=== PATIENT | male | born 1940 | race Caucasian/White ===

== ENCOUNTER 2021-06-09 15:03 | Emergency (ER) | payer OTHER ==
[2021-06-09 15:20] VITALS: BMI 26.4
[2021-06-09] MEDS ORDERED: CASIRIVIMAB (REGN10933) 600 MG, IMDEVIMAB (REGN10987) 600 MG in SODIUM CHLORIDE 100 ML IVPB ONE (16:04)
[2021-06-09 16:45] LABS: BASO % 0.3 % (0-2.0); EOS % 0.5 % (0-4.5); HEMATOCRIT 32.6 % (35.4-49); HEMOGLOBIN 10.8 GM/dL (11.7-16.9); LYMPH % 15.4 % (8-40); MCH 27.8 pg (25.7-33.7); MCHC 33.1 g/dl (32.0-35.9); MEAN CELL VOLUME 84.1 fl (80-96); MEAN PLT VOLUME 8.9 fl (7.5-11.1); MONO % 14.9 % (3.8-10.2); NEUT % 68.9 % (42.8-82.8); PLATELET COUNT 211 10^3/uL (134-434); RBC 3.88 M/mm3 (4.00-5.60); RDW 15.9 % (11.9-15.9); WHITE BLOOD COUNT 4.8 K/mm3 (4.0-10.0)
[2021-06-09 17:14] LABS: ALBUMIN 3.2 g/dl (3.4-5.0); BILIRUBIN,TOTAL 0.3 mg/dL (0.2-1); BLOOD UREA NITROGEN 48.3 mg/dL (7-18); CALCIUM 7.6 mg/dL (8.5-10.1); TOT PROT 7.6 g/dl (6.4-8.2)
[2021-06-09] MEDS ORDERED: DEXTROSE 50%-WATER - 25 GM/50 ML VIAL IVPUSH ONE (17:56)
[2021-06-09] MEDS ORDERED: DEXTROSE 50%-WATER 25 GM/50 ML DISP.SYRIN ONE (18:09)
[2021-06-09 20:11] VITALS: BP 167/60; PULSE 87; TEMP 98.1
== END 2021-06-09 20:17 | disposition home or self-care (01) ==
LOC: JCOVINFU 15:03
PROC: 3E03329 Introduction of Other Anti-infective into Peripheral Vein, Percutaneous Approach (ICD-10-PCS; principal; 2021-06-09)
PROC: 3E033GC Introduction of Other Therapeutic Substance into Peripheral Vein, Percutaneous Approach (ICD-10-PCS; 2021-06-09)
DX: U07.1 COVID-19 (principal); R73.9 Hyperglycemia, unspecified
CPT/HCPCS: 36415; 71046-TC-FY; 80053; 85025; 93005; 93010; 99285-25; M0243; Q0243

== ENCOUNTER 2021-08-10 20:00 | Inpatient (IN) | payer OTHER ==
[2021-08-10 21:27] LABS: CALCIUM 7.9 mg/dL (8.5-10.1)
[2021-08-10 21:28] LABS: ALBUMIN 2.7 g/dl (3.4-5.0); BLOOD UREA NITROGEN 70.4 mg/dL (7-18)
[2021-08-10 21:29] LABS: INR 1.2 (0.83-1.09); PROTHROMBIN TIME (PATIENT) 14.8 SEC (9.7-13.0)
[2021-08-10 21:30] LABS: BASO % 0.1 % (0-2.0); EOS % 1.3 % (0-4.5); HEMATOCRIT 21.5 % (35.4-49); HEMOGLOBIN 7.3 GM/dL (11.7-16.9); LYMPH % 8.5 % (8-40); MCH 28.9 pg (25.7-33.7); MCHC 33.9 g/dl (32.0-35.9); MEAN CELL VOLUME 85.3 fl (80-96); MEAN PLT VOLUME 9.1 fl (7.5-11.1); MONO % 10.3 % (3.8-10.2); NEUT % 79.8 % (42.8-82.8); PLATELET COUNT 241 10^3/uL (134-434); RBC 2.52 M/mm3 (4.00-5.60); RDW 15.8 % (11.9-15.9); WHITE BLOOD COUNT 6.5 K/mm3 (4.0-10.0)
[2021-08-10 21:31] LABS: CREATININE 4.4 mg/dL (0.55-1.3)
[2021-08-10] MEDS ORDERED: hydrALAZINE HCL 50 MG TABLET (FP) PO ONE (21:31)
[2021-08-10] MEDS ORDERED: ROSUVASTATIN CA 20 MG TABLET (FP) PO ONE (21:31)
[2021-08-10] MEDS ORDERED: SODIUM BICARBONATE 325 MG TABLET PO ONE (21:31)
[2021-08-10 21:33] LABS: BILIRUBIN,TOTAL 0.4 mg/dL (0.2-1); TOT PROT 7.2 g/dl (6.4-8.2)
[2021-08-10] MEDS ORDERED: PANTOPRAZOLE SODIUM 40 MG VIAL IVPUSH ONE (21:50)
[2021-08-10] MEDS ORDERED: hydrALAZINE HCL 25 MG TABLET (FP) ONE (21:58)
[2021-08-10] MEDS ORDERED: PANTOPRAZOLE SODIUM 40 MG/100 ML BAG IVPB ONE (21:59)
[2021-08-10] MEDS ORDERED: DEXTROSE 5%-NORMAL SALINE 1,000 ML IV SCH (23:15)
[2021-08-11] MEDS ORDERED: DEXTROSE 5%-NORMAL SALINE 1,000 ML IV SCH ×2 (03:04→04:25)
[2021-08-11 04:35] VITALS: BMI 21.9
[2021-08-11] MEDS: hydrALAZINE HCL 50 MG TABLET (FP) PO SCH ×3 (06:23→22:22)
[2021-08-11] MEDS: INSULIN SLIDING SCALE (NOVOLOG) 1 VIAL SQ SCH ×4 (06:25→22:23)
[2021-08-11 09:14] LABS: BASO % 0.2 % (0-2.0); EOS % 1.3 % (0-4.5); HEMOGLOBIN 7.6 GM/dL (11.7-16.9); LYMPH % 9.5 % (8-40); MCHC 34.5 g/dl (32.0-35.9); MEAN CELL VOLUME 84.1 fl (80-96); MONO % 12.7 % (3.8-10.2); NEUT % 76.3 % (42.8-82.8); PLATELET COUNT 212 10^3/uL (134-434); RBC 2.62 M/mm3 (4.00-5.60); RDW 15.7 % (11.9-15.9); WHITE BLOOD COUNT 5.1 K/mm3 (4.0-10.0)
[2021-08-11 09:39] LABS: BLOOD UREA NITROGEN 67.8 mg/dL (7-18); CALCIUM 7.8 mg/dL (8.5-10.1)
[2021-08-11 09:42] LABS: CREATININE 4.1 mg/dL (0.55-1.3)
[2021-08-11] MEDS ORDERED: PT OWN MED DRAWER 7, Y5N ONE (09:53)
[2021-08-11] MEDS: NIFEdipine E.R. 30 MG TABLET PO SCH (09:58)
[2021-08-11] MEDS: AMIODARONE HCL 200 MG TABLET PO SCH (09:58)
[2021-08-11] MEDS: PANTOPRAZOLE 40 MG TABLET PO SCH (09:59)
[2021-08-11] MEDS: TAMSULOSIN HCL 0.4 MG CAP PO SCH (09:59)
[2021-08-11] MEDS: HEPARIN NA (PORCINE) 5,000 UNITS/ML 1ML VIAL SQ SCH ×2 (09:59→22:22)
[2021-08-11] MEDS: MINOXIDIL 2.5 MG TABLET PO SCH (13:04)
[2021-08-11] MEDS ORDERED: FUROSEMIDE 40 MG/4 ML INJECTABLE VIAL IVPUSH ONE (14:45)
[2021-08-11] MEDS: FERROUS SO4 325 MG TABLET (FP) PO SCH (17:27)
[2021-08-11] MEDS: ROSUVASTATIN CA 10 MG TABLET (FP) PO SCH (22:22)
[2021-08-11] MEDS ORDERED: ACETAMINOPHEN 500 MG TABLET (FP) PO ONE (23:10)
[2021-08-12] MEDS ORDERED: ACETAMINOPHEN 325 MG TABLET (FP) PO PRN (06:00)
[2021-08-12] MEDS: hydrALAZINE HCL 50 MG TABLET (FP) PO SCH ×3 (06:19→21:15)
[2021-08-12] MEDS: INSULIN SLIDING SCALE (NOVOLOG) 1 VIAL SQ SCH ×4 (06:20→21:16)
[2021-08-12] MEDS ORDERED: POLYETHYLENE GLYCOL 3350 255 GM BTL PO ONE (07:43)
[2021-08-12] MEDS ORDERED: BISACODYL 5 MG TABLET.DR (FP) PO ONE (07:43)
[2021-08-12 08:42] LABS: CALCIUM 7.8 mg/dL (8.5-10.1)
[2021-08-12 08:43] LABS: ALBUMIN 2.3 g/dl (3.4-5.0); BLOOD UREA NITROGEN 59.2 mg/dL (7-18)
[2021-08-12 08:45] LABS: BASO % 0.2 % (0-2.0); EOS % 1.5 % (0-4.5); HEMATOCRIT 26.5 % (35.4-49); HEMOGLOBIN 9.1 GM/dL (11.7-16.9); LYMPH % 9.3 % (8-40); MCH 28.8 pg (25.7-33.7); MCHC 34.2 g/dl (32.0-35.9); MEAN CELL VOLUME 84.1 fl (80-96); MEAN PLT VOLUME 8.9 fl (7.5-11.1); MONO % 12.8 % (3.8-10.2); NEUT % 76.2 % (42.8-82.8); PLATELET COUNT 251 10^3/uL (134-434); RBC 3.15 M/mm3 (4.00-5.60); WHITE BLOOD COUNT 6.8 K/mm3 (4.0-10.0)
[2021-08-12 08:47] LABS: BILIRUBIN,TOTAL 0.6 mg/dL (0.2-1); TOT PROT 6.3 g/dl (6.4-8.2)
[2021-08-12] MEDS: TAMSULOSIN HCL 0.4 MG CAP PO SCH (09:19)
[2021-08-12] MEDS: HEPARIN NA (PORCINE) 5,000 UNITS/ML 1ML VIAL SQ SCH ×2 (11:15→21:15)
[2021-08-12] MEDS: NIFEdipine E.R. 30 MG TABLET PO SCH (11:15)
[2021-08-12] MEDS: AMIODARONE HCL 200 MG TABLET PO SCH (11:15)
[2021-08-12] MEDS: PANTOPRAZOLE 40 MG TABLET PO SCH (11:16)
[2021-08-12] MEDS: FERROUS SO4 325 MG TABLET (FP) PO SCH ×2 (11:16→18:48)
[2021-08-12] MEDS ORDERED: PT OWN MED DRAWER 7, Y5N ONE ×2 (11:59→16:12)
[2021-08-12] MEDS: MINOXIDIL 2.5 MG TABLET PO SCH (12:06)
[2021-08-12] MEDS ORDERED: INSULIN (NOVOLOG) ASPART 100 UNITS/ML 10ML VIAL ONE (20:17)
[2021-08-12] MEDS: ROSUVASTATIN CA 10 MG TABLET (FP) PO SCH (21:15)
[2021-08-13] MEDS ORDERED: MINERAL OIL ENEMA 133 ML ENEMA RC ONE (04:00)
[2021-08-13] MEDS: hydrALAZINE HCL 50 MG TABLET (FP) PO SCH ×3 (06:08→22:20)
[2021-08-13] MEDS: INSULIN SLIDING SCALE (NOVOLOG) 1 VIAL SQ SCH ×4 (06:10→22:52)
[2021-08-13] MEDS ORDERED: EPINEPHrine 1:10,000 (P-F SYR) 1 MG/10 ML DISP.SYRIN IVPUSH ONE (09:05)
[2021-08-13] MEDS ORDERED: EPINEPHrine 1:10,000 (P-F SYR) 1 MG/10 ML DISP.SYRIN ONE (10:43)
[2021-08-13] MEDS: FERROUS SO4 325 MG TABLET (FP) PO SCH ×2 (11:10→18:08)
[2021-08-13] MEDS: AMIODARONE HCL 200 MG TABLET PO SCH (11:15)
[2021-08-13] MEDS: NIFEdipine E.R. 30 MG TABLET PO SCH (11:16)
[2021-08-13] MEDS: PANTOPRAZOLE 40 MG TABLET PO SCH (11:16)
[2021-08-13] MEDS: TAMSULOSIN HCL 0.4 MG CAP PO SCH (11:16)
[2021-08-13] MEDS: HEPARIN NA (PORCINE) 5,000 UNITS/ML 1ML VIAL SQ SCH ×2 (11:17→22:21)
[2021-08-13] MEDS: MINOXIDIL 2.5 MG TABLET PO SCH (11:17)
[2021-08-13] MEDS ORDERED: IRON SUCROSE INJECTION 100 MG in SODIUM CHLORIDE 95 ML IVPB ONE (11:36)
[2021-08-13] MEDS ORDERED: ACETAMINOPHEN 325 MG TABLET (FP) PO PRN (12:49)
[2021-08-13 16:17] LABS: BASO % 0.3 % (0-2.0); EOS % 0.9 % (0-4.5); HEMATOCRIT 25.8 % (35.4-49); HEMOGLOBIN 8.6 GM/dL (11.7-16.9); LYMPH % 7.3 % (8-40); MCH 28.1 pg (25.7-33.7); MCHC 33.4 g/dl (32.0-35.9); MEAN CELL VOLUME 84.3 fl (80-96); MEAN PLT VOLUME 8.8 fl (7.5-11.1); MONO % 13.9 % (3.8-10.2); NEUT % 77.6 % (42.8-82.8); PLATELET COUNT 235 10^3/uL (134-434); RBC 3.06 M/mm3 (4.00-5.60); RDW 15.2 % (11.9-15.9); WHITE BLOOD COUNT 6.7 K/mm3 (4.0-10.0)
[2021-08-13 16:34] LABS: CALCIUM 7.2 mg/dL (8.5-10.1)
[2021-08-13 16:35] LABS: ALBUMIN 2.1 g/dl (3.4-5.0); BLOOD UREA NITROGEN 48.6 mg/dL (7-18)
[2021-08-13 16:39] LABS: BILIRUBIN,TOTAL 0.4 mg/dL (0.2-1); TOT PROT 6.1 g/dl (6.4-8.2)
[2021-08-13] MEDS ORDERED: FLU VACC QS2021-22(6MOS UP)/PF 60 MCG/0.5 ML SYRINGE IM ONE (19:00)
[2021-08-13] MEDS ORDERED: ROSUVASTATIN CA 10 MG TABLET (FP) PO SCH (22:00)
[2021-08-14] MEDS: hydrALAZINE HCL 50 MG TABLET (FP) PO SCH ×2 (06:31→14:02)
[2021-08-14] MEDS: INSULIN SLIDING SCALE (NOVOLOG) 1 VIAL SQ SCH ×2 (06:34→11:15)
[2021-08-14] MEDS: FERROUS SO4 325 MG TABLET (FP) PO SCH (08:28)
[2021-08-14] MEDS ORDERED: TAMSULOSIN HCL 0.4 MG CAP PO SCH (08:30)
[2021-08-14] MEDS ORDERED: PANTOPRAZOLE 40 MG TABLET PO SCH (10:00)
[2021-08-14] MEDS ORDERED: MINOXIDIL 2.5 MG TABLET PO SCH (10:00)
[2021-08-14] MEDS ORDERED: AMIODARONE HCL 200 MG TABLET PO SCH (10:00)
[2021-08-14] MEDS ORDERED: NIFEdipine E.R. 30 MG TABLET PO SCH (10:00)
[2021-08-14] MEDS: HEPARIN NA (PORCINE) 5,000 UNITS/ML 1ML VIAL SQ SCH (10:08)
[2021-08-14 10:43] LABS: BASO % 0.2 % (0-2.0); EOS % 1.4 % (0-4.5); HEMOGLOBIN 9.6 GM/dL (11.7-16.9); LYMPH % 6.7 % (8-40); MCHC 34.2 g/dl (32.0-35.9); MEAN CELL VOLUME 84.6 fl (80-96); MEAN PLT VOLUME 8.8 fl (7.5-11.1); MONO % 10.3 % (3.8-10.2); NEUT % 81.4 % (42.8-82.8); PLATELET COUNT 284 10^3/uL (134-434); RBC 3.31 M/mm3 (4.00-5.60); RDW 15.2 % (11.9-15.9); WHITE BLOOD COUNT 7.4 K/mm3 (4.0-10.0)
[2021-08-14 14:05] VITALS: BP 122/67; PULSE 79; TEMP 98.2
[2021-08-14] MEDS ORDERED: ROSUVASTATIN CA 20 MG TABLET (FP) PO SCH (22:00)
== END 2021-08-14 16:43 | disposition home or self-care (01) | DRG 378 ==
LOC: JER 20:00 → JERBED 22:20 → J8W 08-11 04:01
PROVIDERS: ADMIT Internal Medicine; ATTEND Family Medicine
PROC: 30233N1 Transfusion of Nonautologous Red Blood Cells into Peripheral Vein, Percutaneous Approach (ICD-10-PCS; 2021-08-10)
PROC: 0W3P8ZZ Control Bleeding in Gastrointestinal Tract, Via Natural or Artificial Opening Endoscopic (ICD-10-PCS; principal; 2021-08-11)
PROC: 0DBK8ZX Excision of Ascending Colon, Via Natural or Artificial Opening Endoscopic, Diagnostic (ICD-10-PCS; 2021-08-11)
DX: K31.811 Angiodysplasia of stomach and duodenum with bleeding (principal); N17.9 Acute kidney failure, unspecified; J43.9 Emphysema, unspecified; I12.9 Hypertensive chronic kidney disease with stage 1 through stage 4 chronic kidney disease, or unspecified chronic kidney disease; N18.9 Chronic kidney disease, unspecified; D64.9 Anemia, unspecified; Z79.01 Long term (current) use of anticoagulants; E11.22 Type 2 diabetes mellitus with diabetic chronic kidney disease; E11.51 Type 2 diabetes mellitus with diabetic peripheral angiopathy without gangrene; D50.9 Iron deficiency anemia, unspecified; K63.5 Polyp of colon; K57.30 Diverticulosis of large intestine without perforation or abscess without bleeding; K29.70 Gastritis, unspecified, without bleeding; I48.0 Paroxysmal atrial fibrillation
CPT/HCPCS: 36415; 36430; 71046-TC-FY; 80048; 80053; 82272; 82550; 82962; 84484; 85025; 85610; 86850; 86900; 86901; 86922; 88305-TC; 90686; 93005; 93010; 99285-25; C9803; G0008; J1644; J1756; P9058; U0003; U0005

== ENCOUNTER 2021-09-03 11:35 | Day surgery (SDC) | payer OTHER ==
[2021-09-03 12:42] VITALS: BMI 22.0
[2021-09-03] MEDS ORDERED: FERRIC CARBOXYMALTOSE 750 MG in SODIUM CHLORIDE 250 ML IVPB ONE (12:45)
[2021-09-03] MEDS ORDERED: FUROSEMIDE 40 MG/4 ML INJECTABLE VIAL IVPUSH ONE ×3 (13:11→20:30)
[2021-09-04] MEDS ORDERED: FUROSEMIDE 40 MG/4 ML INJECTABLE VIAL IVPUSH ONE (03:15)
[2021-09-04 03:16] VITALS: BP 145/38; PULSE 57; TEMP 98.4
[2021-09-04 09:05] LABS: BASO % 0.5 % (0-2.0); EOS % 3.4 % (0-4.5); HEMATOCRIT 28.6 % (35.4-49); HEMOGLOBIN 9.6 GM/dl (11.7-16.9); LYMPH % 11.1 % (8-40); MCH 29.2 pg (25.7-33.7); MCHC 33.7 g/dl (32.0-35.9); MEAN CELL VOLUME 86.7 fl (80-96); MEAN PLT VOLUME 9.3 fl (7.5-11.1); MONO % 12.1 % (3.8-10.2); NEUT % 72.9 % (42.8-82.8); PLATELET COUNT 194 10^3/uL (134-434); RDW 14.5 % (11.9-15.9); WHITE BLOOD COUNT 5.7 K/mm3 (4.0-10.8)
== END 2021-09-04 09:48 | disposition home or self-care (01) ==
LOC: FINFUSION 11:35 → FM/S 11:37 → FINFUSION 09-04 09:48
PROVIDERS: ATTEND Nurse Practitioner Family
PROC: 3E033GC Introduction of Other Therapeutic Substance into Peripheral Vein, Percutaneous Approach (ICD-10-PCS; principal; 2021-09-03)
DX: D50.9 Iron deficiency anemia, unspecified (principal)
CPT/HCPCS: 36415; 36430; 85025; 86850; 86900; 86901; 86922; 96365; J1439; P9058

== ENCOUNTER 2021-11-24 12:52 | Inpatient (IN) | payer OTHER ==
[2021-11-24 15:14] LABS: BASO % 0.5 % (0-2.0); EOS % 1.9 % (0-4.5); HEMATOCRIT 32.3 % (35.4-49); LYMPH % 12.4 % (8-40); MCHC 31.1 g/dl (32.0-35.9); MEAN CELL VOLUME 93.4 fl (80-96); MEAN PLT VOLUME 8.8 fl (7.5-11.1); MONO % 10.2 % (3.8-10.2); PLATELET COUNT 187 10^3/uL (134-434); RBC 3.45 M/mm3 (4.00-5.60); RDW 17.3 % (11.9-15.9); WHITE BLOOD COUNT 4.2 K/mm3 (4.0-10.0)
[2021-11-24 15:24] LABS: INR 1.19 (0.83-1.09); PROTHROMBIN TIME (PATIENT) 13.7 SEC (9.7-13.0)
[2021-11-24] MEDS ORDERED: ACETAMINOPHEN 325 MG TABLET (FP) PO PRN (15:32)
[2021-11-24 15:43] LABS: BLOOD UREA NITROGEN 51.4 mg/dL (7-18)
[2021-11-24 15:46] LABS: CREATININE 4.5 mg/dL (0.55-1.3)
[2021-11-24 15:47] LABS: BILIRUBIN,TOTAL 0.4 mg/dL (0.2-1); TOT PROT 6.8 g/dl (6.4-8.2)
[2021-11-24] MEDS: PANTOPRAZOLE 40 MG TABLET PO SCH (16:00)
[2021-11-24] MEDS ORDERED: PANTOPRAZOLE 40 MG TABLET ONE (16:26)
[2021-11-24] MEDS ORDERED: FUROSEMIDE 40 MG/4 ML INJECTABLE VIAL IVPB ONE (16:29)
[2021-11-24] MEDS ORDERED: FUROSEMIDE 40 MG/4 ML INJECTABLE VIAL ONE (18:25)
[2021-11-24] MEDS ORDERED: hydrALAZINE HCL 25 MG TABLET (FP) ONE (23:04)
[2021-11-24] MEDS: hydrALAZINE HCL 25 MG TABLET (FP) PO SCH (23:10)
[2021-11-25 02:16] VITALS: BMI 23.7
[2021-11-25] MEDS: hydrALAZINE HCL 25 MG TABLET (FP) PO SCH ×3 (05:45→21:13)
[2021-11-25 06:45] LABS: HEMATOCRIT 33.2 % (35.4-49); HEMOGLOBIN 10.1 GM/dL (11.7-16.9); MCH 28.7 pg (25.7-33.7); MCHC 30.5 g/dl (32.0-35.9); MEAN PLT VOLUME 9.2 fl (7.5-11.1); PLATELET COUNT 185 10^3/uL (134-434); RBC 3.54 M/mm3 (4.00-5.60); RDW 16.7 % (11.9-15.9); WHITE BLOOD COUNT 4.7 K/mm3 (4.0-10.0)
[2021-11-25 07:25] LABS: ALBUMIN 2.9 g/dl (3.4-5.0); BLOOD UREA NITROGEN 51.2 mg/dL (7-18); MAGNESIUM 2.1 mg/dL (1.8-2.4)
[2021-11-25 07:28] LABS: CREATININE 4.6 mg/dL (0.55-1.3); PHOSPHOROUS 5.2 mg/dL (2.5-4.9)
[2021-11-25 07:30] LABS: BILIRUBIN,TOTAL 0.5 mg/dL (0.2-1); IRON SERUM 23 ug/dL (50-175); TOT PROT 6.7 g/dl (6.4-8.2)
[2021-11-25 07:31] LABS: TOTAL IRON BINDING CAPACITY 220 ug/dL (250-450)
[2021-11-25] MEDS ORDERED: TAMSULOSIN HCL 0.4 MG CAP PO SCH (08:30)
[2021-11-25] MEDS ORDERED: AMIODARONE HCL 200 MG TABLET PO SCH (10:00)
[2021-11-25] MEDS ORDERED: NIFEdipine E.R. 30 MG TABLET PO SCH (10:00)
[2021-11-25] MEDS: PANTOPRAZOLE 40 MG TABLET PO SCH (10:21)
[2021-11-25] MEDS ORDERED: SODIUM ZIRCONIUM CYCLOSILICATE (LOKELMA) 10 GM PACKET PO ONE (10:32)
[2021-11-25] MEDS ORDERED: FUROSEMIDE 40 MG/4 ML INJECTABLE VIAL IVPUSH ONE (10:32)
[2021-11-25] MEDS ORDERED: SODIUM CHLORIDE 250 ML IV PRN ×2 (11:07→17:28)
[2021-11-25] MEDS ORDERED: LIDOCAINE HCL 1%, 10 MG/ML (20ML VIAL) ONE (14:28)
[2021-11-25] MEDS ORDERED: HEPARIN NA (PORCINE) 5,000 UNITS/ML 1ML VIAL ONE (14:28)
[2021-11-25] MEDS ORDERED: SODIUM ZIRCONIUM CYCLOSILICATE (LOKELMA) 5 GM PACKET PO ONE ×2 (15:55→17:28)
[2021-11-25] MEDS ORDERED: ALBUTEROL SO4 2.5/IPRATROPIUM 0.5 INH SOL 3 ML VIAL.NEB. NEB SCH (16:00)
[2021-11-25] MEDS ORDERED: PROPOFOL 20 ML ONE (16:07)
[2021-11-25] MEDS ORDERED: MIDAZOLAM HCL 2 MG/2 ML SINGLE DOSE VIAL ONE (16:07)
[2021-11-25] MEDS ORDERED: ceFAZolin SODIUM 1 GM VIAL ONE (16:36)
[2021-11-25] MEDS ORDERED: ceFAZolin SODIUM 1 GM VIAL IVPB ONE (16:38)
[2021-11-25] MEDS ORDERED: LIDOCAINE HCL 1%, 10 MG/ML (20ML VIAL) NR ONE ×2 (16:44)
[2021-11-25] MEDS ORDERED: HEPARIN NA (PORCINE) 5,000 UNITS/ML 1ML VIAL SQ ONE (16:47)
[2021-11-25] MEDS ORDERED: ONDANSETRON 4 MG/2 ML VIAL IVPUSH PRN ×2 (17:05→17:28)
[2021-11-25] MEDS: ALBUTEROL SO4 2.5/IPRATROPIUM 0.5 INH SOL 3 ML VIAL.NEB. NEB SCH (20:50)
[2021-11-26] MEDS: ACETAMINOPHEN 325 MG TABLET (FP) PO PRN ×2 (01:20→21:30)
[2021-11-26] MEDS: hydrALAZINE HCL 25 MG TABLET (FP) PO SCH ×3 (06:20→21:29)
[2021-11-26] MEDS: ALBUTEROL SO4 2.5/IPRATROPIUM 0.5 INH SOL 3 ML VIAL.NEB. NEB SCH ×4 (07:58→21:01)
[2021-11-26] MEDS: PANTOPRAZOLE 40 MG TABLET PO SCH (10:34)
[2021-11-26] MEDS: NIFEdipine E.R. 30 MG TABLET PO SCH (10:34)
[2021-11-26] MEDS: AMIODARONE HCL 200 MG TABLET PO SCH (10:35)
[2021-11-26] MEDS: TAMSULOSIN HCL 0.4 MG CAP PO SCH (10:35)
[2021-11-26] MEDS ORDERED: SODIUM CHLORIDE 250 ML IV PRN (13:48)
[2021-11-26] MEDS ORDERED: IRON SUCROSE INJECTION 100 MG in SODIUM CHLORIDE 95 ML IVPB ONE (15:30)
[2021-11-26] MEDS: SEVELAMER CARBONATE 800 MG TAB (FP) PO SCH (17:20)
[2021-11-26] MEDS ORDERED: FERRIC CARBOXYMALTOSE 750 MG in SODIUM CHLORIDE 250 ML IVPB ONE ×2 (17:30→18:00)
[2021-11-27] MEDS: hydrALAZINE HCL 25 MG TABLET (FP) PO SCH (05:50)
[2021-11-27] MEDS: ALBUTEROL SO4 2.5/IPRATROPIUM 0.5 INH SOL 3 ML VIAL.NEB. NEB SCH ×3 (08:00→15:40)
[2021-11-27] MEDS: SEVELAMER CARBONATE 800 MG TAB (FP) PO SCH ×3 (08:00→17:55)
[2021-11-27 09:11] LABS: HEMATOCRIT 32.9 % (35.4-49); HEMOGLOBIN 10.2 GM/dL (11.7-16.9); MCH 28.3 pg (25.7-33.7); MCHC 30.9 g/dl (32.0-35.9); MEAN CELL VOLUME 91.7 fl (80-96); MEAN PLT VOLUME 8.9 fl (7.5-11.1); PLATELET COUNT 166 10^3/uL (134-434); RBC 3.59 M/mm3 (4.00-5.60); RDW 15.9 % (11.9-15.9)
[2021-11-27 09:51] LABS: CALCIUM 7.1 mg/dL (8.5-10.1)
[2021-11-27 09:52] LABS: BLOOD UREA NITROGEN 39.2 mg/dL (7-18); MAGNESIUM 1.8 mg/dL (1.8-2.4)
[2021-11-27 09:53] LABS: CREATININE 3.7 mg/dL (0.55-1.3)
[2021-11-27 09:55] LABS: PHOSPHOROUS 3.5 mg/dL (2.5-4.9)
[2021-11-27] MEDS: TAMSULOSIN HCL 0.4 MG CAP PO SCH (11:15)
[2021-11-27] MEDS: AMIODARONE HCL 200 MG TABLET PO SCH (11:15)
[2021-11-27] MEDS: NIFEdipine E.R. 30 MG TABLET PO SCH (11:15)
[2021-11-27] MEDS: PANTOPRAZOLE 40 MG TABLET PO SCH (11:15)
[2021-11-27] MEDS ORDERED: hydrALAZINE HCL 50 MG TABLET (FP) PO SCH (12:01)
[2021-11-27] MEDS ORDERED: hydrALAZINE HCL 25 MG TABLET (FP) PO SCH (14:00)
[2021-11-27 16:13] VITALS: BP 144/63; PULSE 58; TEMP 98.5
[2021-11-28] MEDS ORDERED: VITAMIN B COMP W-C 1 EA TABLET (NEPHRO-VITE) PO SCH (10:00)
== END 2021-11-27 17:57 | disposition home or self-care (01) | DRG 291 ==
LOC: SUPCPDRO 12:52 → JER 12:52 → JERBED 15:58 → J4S 11-25 00:25
PROVIDERS: ADMIT Family Medicine; ATTEND Family Medicine
PROC: B548ZZA Ultrasonography of Superior Vena Cava, Guidance (ICD-10-PCS; 2021-11-25)
PROC: 5A1D70Z Performance of Urinary Filtration, Intermittent, Less than 6 Hours Per Day (ICD-10-PCS; 2021-11-25)
PROC: 02HV33Z Insertion of Infusion Device into Superior Vena Cava, Percutaneous Approach (ICD-10-PCS; principal; 2021-11-25 15:00)
DX: I13.2 Hypertensive heart and chronic kidney disease with heart failure and with stage 5 chronic kidney disease, or end stage renal disease (principal); N18.6 End stage renal disease; N17.9 Acute kidney failure, unspecified; D69.6 Thrombocytopenia, unspecified; E87.5 Hyperkalemia; I50.9 Heart failure, unspecified; E11.22 Type 2 diabetes mellitus with diabetic chronic kidney disease; D50.9 Iron deficiency anemia, unspecified; E11.51 Type 2 diabetes mellitus with diabetic peripheral angiopathy without gangrene; I48.91 Unspecified atrial fibrillation; J44.9 Chronic obstructive pulmonary disease, unspecified; I49.5 Sick sinus syndrome; F25.9 Schizoaffective disorder, unspecified
CPT/HCPCS: 36415; 71045-TC-FY; 71250-TC; 80048; 80053; 82728; 83036; 83540; 83550; 83735; 84100; 84439; 84443; 85025; 85027; 85610; 86704; 86705; 86708; 86709; 86803; 87340; 87517; 93005; 93010; 94640; 94760; 94761; 97116-GP; 97161-GP; 99285-25; C9803; J1644; J1756; U0003; U0005

== ENCOUNTER 2022-05-28 18:52 | Emergency (ER) | payer OTHER ==
[2022-05-28 19:09] VITALS: BP 158/82; PULSE 78; RESP 16; TEMP 98.2; BMI 27.3
[2022-05-28] MEDS ORDERED: BEBTELOVIMAB (EUA) 175 MG/2 ML VIAL IVPUSH ONE (19:19)
== END 2022-05-28 21:29 | disposition home or self-care (01) ==
LOC: JCOVINFU 18:52 → JER 18:52 → JCOVINFU 21:29
DX: U07.1 COVID-19 (principal); N18.6 End stage renal disease; I50.9 Heart failure, unspecified
CPT/HCPCS: 71046-TC-FY; 99284-25; M0222; Q0222